=== PATIENT | female | born 1965 | race Caucasian/White ===

== ENCOUNTER 2018-01-22 06:20 | Day surgery (SDC) | payer OTHER ==
[~2018-01-22 06:20] MED LIST: BUSPAR PO; CLONAZEPAM2 MG PO; GEODON80 MG PO; PROZAC40 MG PO; RESTORIL30 M1 PO; WELLBUTRIN XL300 MG PO
== END 2018-01-22 14:50 | disposition home or self-care (01) ==
LOC: CIR.AMB 06:20
DX: C79.81 Secondary malignant neoplasm of breast (principal)
CPT/HCPCS: 36556; C1751

== ENCOUNTER → 2018-04-03 14:05 | Outpatient (CLI) | payer OTHER | END | disposition home or self-care (01) | LOC: LAB 14:05 | DX: D64.89 Other specified anemias (principal) ==

== ENCOUNTER 2018-05-17 05:58 | Day surgery (SDC) | payer OTHER ==
[~2018-05-17] VITALS: Ht 157.5 cm; Wt 72.6 kg
[~2018-05-17 05:58] MED LIST changes: +CANNABIS MEDICINAL
== END 2018-05-18 09:00 | disposition home or self-care (01) ==
LOC: CIR.AMB 05:58 → O/R 15:54 → SURH 15:57 → O/R 15:57 → SURH 15:57 → CIR.AMB 18:06 → SURH 05-18 13:56 → O/R 05-18 13:56
DX: C50.411 Malignant neoplasm of upper-outer quadrant of right female breast (principal); Z15.01 Genetic susceptibility to malignant neoplasm of breast; Z90.13 Acquired absence of bilateral breasts and nipples

== ENCOUNTER 2018-12-30 08:21 | Day surgery (SDC) | payer OTHER | END 2018-12-30 17:10 | disposition home or self-care (01) | LOC: CIR.AMB 08:21 | PROVIDERS: Plastic Surgery | PROC: 0HPT0JZ Removal of Synthetic Substitute from Right Breast, Open Approach (ICD-10-PCS; 2018-12-30) | PROC: 0HRV0JZ Replacement of Bilateral Breast with Synthetic Substitute, Open Approach (ICD-10-PCS; 2018-12-30) | PROC: 0H0V0KZ Alteration of Bilateral Breast with Nonautologous Tissue Substitute, Open Approach (ICD-10-PCS; 2018-12-30) | PROC: 0HPU0JZ Removal of Synthetic Substitute from Left Breast, Open Approach (ICD-10-PCS; principal; 2018-12-30 07:00) | DX: C50.411 Malignant neoplasm of upper-outer quadrant of right female breast (principal); Z90.13 Acquired absence of bilateral breasts and nipples | CPT/HCPCS: 19328; 19342; 19366; C1789 ==

== ENCOUNTER → 2019-03-11 | Outpatient (CLI) | payer OTHER | END | disposition home or self-care (01) | LOC: RAD 12:33 | DX: J15.7 Pneumonia due to Mycoplasma pneumoniae (principal); Z85.3 Personal history of malignant neoplasm of breast ==

== ENCOUNTER 2019-05-07 09:00 | Inpatient (IN) | payer OTHER ==
[2019-05-07] MEDS ORDERED: VOLTAREN100 GM (09:15)
== END 2019-05-16 13:19 | disposition home or self-care (01) | DRG 742 ==
LOC: ADM 09:00 → OB/GYN 05-15 05:54 → O/R 05-15 05:54 → CIR.AMB 05-15 09:00 → EDSTATUS 05-15 09:00 → SURH 05-15 09:45 → OB/GYN 05-15 14:23
PROVIDERS: ADMIT Obstetrics & Gynecology Gynecologic Oncology
PROC: 0UT74ZZ Resection of Bilateral Fallopian Tubes, Percutaneous Endoscopic Approach (ICD-10-PCS; 2019-05-15)
PROC: 0DBU4ZZ Excision of Omentum, Percutaneous Endoscopic Approach (ICD-10-PCS; 2019-05-15)
PROC: 3E1M38Z Irrigation of Peritoneal Cavity using Irrigating Substance, Percutaneous Approach (ICD-10-PCS; 2019-05-15)
PROC: 0UT94ZZ Resection of Uterus, Percutaneous Endoscopic Approach (ICD-10-PCS; principal; 2019-05-15 09:45)
DX: N80.0 Endometriosis of uterus (principal); C79.89 Secondary malignant neoplasm of other specified sites; Z15.01 Genetic susceptibility to malignant neoplasm of breast; Z15.09 Genetic susceptibility to other malignant neoplasm; Z85.3 Personal history of malignant neoplasm of breast; N83.292 Other ovarian cyst, left side; N71.1 Chronic inflammatory disease of uterus

== ENCOUNTER 2022-07-16 13:42 | Emergency (ER) | payer OTHER ==
[~2022-07-16] VITALS: Ht 157.5 cm; Wt 67.1 kg
[~2022-07-16 13:42] MED LIST changes: +VOLTAREN100 GM
== END 2022-07-16 20:15 | disposition home or self-care (01) ==
LOC: ER 13:42
DX: G25.2 Other specified forms of tremor (principal); Z85.3 Personal history of malignant neoplasm of breast; D63.0 Anemia in neoplastic disease; Z88.2 Allergy status to sulfonamides

== ENCOUNTER 2022-08-03 15:16 | Inpatient (IN) | payer OTHER ==
[~2022-08-03] VITALS: Ht 157.5 cm; Wt 63.0 kg
[2022-08-03] MEDS ORDERED: ALPRAZOLAM1 MG (17:48)
[2022-08-03] MEDS ORDERED: QUETIAPINE FUMA25 MG (17:48)
[2022-08-03] MEDS ORDERED: PROPRANOLOL HCL10 MG (17:48)
[2022-08-03] MEDS ORDERED: ESCITALOPRAM OX20 MG (17:48)
[2022-08-03] MEDS ORDERED: LYNPARZA150 MG (17:49)
== END 2022-08-06 14:43 | disposition home or self-care (01) | DRG 598 ==
LOC: MEDI 15:16
PROVIDERS: ADMIT Internal Medicine Hematology & Oncology; ATTEND Internal Medicine Hematology & Oncology
PROC: 30233N1 Transfusion of Nonautologous Red Blood Cells into Peripheral Vein, Percutaneous Approach (ICD-10-PCS; principal; 2022-08-03)
DX: C50.411 Malignant neoplasm of upper-outer quadrant of right female breast (principal); C77.9 Secondary and unspecified malignant neoplasm of lymph node, unspecified; C78.01 Secondary malignant neoplasm of right lung; C78.02 Secondary malignant neoplasm of left lung; C78.7 Secondary malignant neoplasm of liver and intrahepatic bile duct; C79.72 Secondary malignant neoplasm of left adrenal gland; C79.71 Secondary malignant neoplasm of right adrenal gland; F31.81 Bipolar II disorder; G25.9 Extrapyramidal and movement disorder, unspecified; D63.0 Anemia in neoplastic disease; M51.37 Other intervertebral disc degeneration, lumbosacral region; M62.830 Muscle spasm of back; Z17.0 Estrogen receptor positive status [ER+]; Z15.01 Genetic susceptibility to malignant neoplasm of breast; Z15.09 Genetic susceptibility to other malignant neoplasm
CPT/HCPCS: 240

== ENCOUNTER 2022-11-28 09:55 | Inpatient (IN) | payer OTHER ==
[~2022-11-28] VITALS: Ht 162.6 cm; Wt 56.7 kg
[~2022-11-28 09:55] MED LIST changes: +ALPRAZOLAM1 MG; +ESCITALOPRAM OX20 MG; +LYNPARZA150 MG; +PROPRANOLOL HCL10 MG; +QUETIAPINE FUMA25 MG
[2022-11-29] MEDS ORDERED: ALPRAZOLAM1 MG (11:06)
[2022-11-29] MEDS ORDERED: ESCITALOPRAM OX20 MG (11:06)
[2022-11-29] MEDS ORDERED: PREGABALIN75 MG (11:07)
[2022-11-29] MEDS ORDERED: LYNPARZA150 MG (11:07)
[2022-11-29] MEDS ORDERED: PROPRANOLOL HCL10 MG (11:07)
[2022-11-29] MEDS ORDERED: QUETIAPINE FUMA25 MG (11:07)
[2022-11-30] MEDS ORDERED: TOBRADEX EYE DR10 ML OP (13:14)
== END 2022-11-30 14:41 | disposition home or self-care (01) | DRG 599 ==
LOC: SEC-K 09:55 → MEDJ 09:55
PROVIDERS: ADMIT Internal Medicine Hematology & Oncology; ATTEND Internal Medicine Hematology & Oncology
PROC: 30233N1 Transfusion of Nonautologous Red Blood Cells into Peripheral Vein, Percutaneous Approach (ICD-10-PCS; principal; 2022-11-28)
DX: C50.411 Malignant neoplasm of upper-outer quadrant of right female breast (principal); D63.0 Anemia in neoplastic disease; Z15.01 Genetic susceptibility to malignant neoplasm of breast; D64.9 Anemia, unspecified
CPT/HCPCS: 240

== ENCOUNTER 2023-02-16 12:16 | Inpatient (IN) | payer OTHER ==
[~2023-02-16] VITALS: Ht 157.5 cm; Wt 63.5 kg
[~2023-02-16 12:16] MED LIST changes: +PREGABALIN75 MG; +TOBRADEX EYE DR10 ML OP
== END 2023-02-18 13:09 | disposition home or self-care (01) | DRG 598 ==
LOC: MEDJ 12:16
PROVIDERS: ADMIT Internal Medicine Hematology & Oncology; ATTEND Internal Medicine Hematology & Oncology
PROC: 30233N1 Transfusion of Nonautologous Red Blood Cells into Peripheral Vein, Percutaneous Approach (ICD-10-PCS; principal; 2023-02-17)
DX: C50.411 Malignant neoplasm of upper-outer quadrant of right female breast (principal); C77.9 Secondary and unspecified malignant neoplasm of lymph node, unspecified; C78.7 Secondary malignant neoplasm of liver and intrahepatic bile duct; C79.70 Secondary malignant neoplasm of unspecified adrenal gland; D63.0 Anemia in neoplastic disease

== ENCOUNTER 2023-08-10 15:44 | Inpatient (IN) | payer OTHER ==
[~2023-08-10] VITALS: Ht 157.5 cm; Wt 60.3 kg
[2023-08-12 08:18] LABS: HEMATOCRIT 29.6 % (36.0-45.00); HEMOGLOBIN 10.3 g/dL (12.0-15.00); MEAN CELL VOLUME 90.7 fL (80.00-100.00); MEAN CORPUSCULAR HEMOGLOBIN 31.5 pg (27.00-32.0); MEAN CORPUSCULAR HGB CONC 34.7 g/dl (32.0-36.0); RED BLOOD COUNT 3.26 M/uL (4.00-6.00)
[2023-08-12 08:26] LABS: PLATELET COUNT 119 K/uL (150-450)
[2023-08-12 08:28] LABS: RED CELL DISTRIBUTION WIDTH 21.8 % (11.5-14.5)
[2023-08-12 08:43] LABS: ALBUMIN 3.4 gm/dL (3.4-5.0); BILIRUBIN TOTAL 1.33 mg/dL (0.3-1.2); CALCIUM 8.4 mg/dL (8.5-10.1); CREATININE SERUM 0.72 mg/dL (0.55-1.02); GFR 82.62; GLOBULINA 2.8 G/DL (2.4-3.5); POTASSIUM 4.29 mEq/L (3.5-5.1); TOTAL PROTEIN 6.2 gm/dL (6.4-8.2)
[2023-08-12 08:46] LABS: D DIMER 3.4 MG/L; INR 1.03; PARTIAL THROMBOPLASTIN TIME 29.3 SECONDS (22.0-34.0); PROTHROMBIN TIME 10.8 SECONDS (9.0-11.5)
== END 2023-08-12 19:30 | disposition home or self-care (01) | DRG 598 ==
LOC: SURH 15:44
PROVIDERS: ADMIT Internal Medicine Hematology & Oncology; ATTEND Internal Medicine Hematology & Oncology
PROC: 30233N1 Transfusion of Nonautologous Red Blood Cells into Peripheral Vein, Percutaneous Approach (ICD-10-PCS; principal; 2023-08-11)
DX: C50.411 Malignant neoplasm of upper-outer quadrant of right female breast (principal); C78.01 Secondary malignant neoplasm of right lung; C78.7 Secondary malignant neoplasm of liver and intrahepatic bile duct; D64.81 Anemia due to antineoplastic chemotherapy; Z17.0 Estrogen receptor positive status [ER+]; E83.111 Hemochromatosis due to repeated red blood cell transfusions
CPT/HCPCS: 240

== ENCOUNTER 2023-09-28 12:16 | Inpatient (IN) | payer OTHER ==
[~2023-09-28] VITALS: Ht 157.5 cm; Wt 61.7 kg
[2023-09-28 13:39] LABS: URINE APPEARANCE Clear; URINE BILIRRUBIN Negative (NEGATIVE); URINE BLOOD Negative; URINE COLOR Dark Yellow; URINE GLUCOSE Negative (NEGATIVE); URINE LEUKOCYTE Negative; URINE NITRATE Negative; URINE PROTEIN 30 (NEGATIVE)
[2023-09-28 13:40] LABS: URINE BACTERIA 119.6 uL (0.0-1933); URINE EPITHELIAL CELLS 8.3 uL (0.0-38.8); URINE WBC 11.1 uL (0.0-23.2)
[2023-09-28 13:57] LABS: MEAN CELL VOLUME 94.5 fL (80.00-100.00); MEAN CORPUSCULAR HGB CONC 34.5 g/dl (32.0-36.0); PLATELET COUNT 138 K/uL (150-450); RED BLOOD COUNT 1.81 M/uL (4.00-6.00); RED CELL DISTRIBUTION WIDTH 22.7 % (11.5-14.5)
[2023-09-28 14:12] LABS: INR 1.04; PARTIAL THROMBOPLASTIN TIME 29.6 SECONDS (22.0-34.0); PROTHROMBIN TIME 10.9 SECONDS (9.0-11.5)
[2023-09-28 14:22] LABS: ALBUMIN 3.8 gm/dL (3.4-5.0); BILIRUBIN TOTAL 0.41 mg/dL (0.3-1.2); CALCIUM 8.6 mg/dL (8.5-10.1); CREATININE SERUM 0.86 mg/dL (0.55-1.02); FERRITIN 832.6 NG/ML (8-252); GFR 67.31; GLOBULINA 3.2 G/DL (2.4-3.5); POTASSIUM 4.09 mEq/L (3.5-5.1)
[2023-09-28 14:29] LABS: HEMATOCRIT 17.1 % (36.0-45.00); HEMOGLOBIN 5.9 g/dL (12.0-15.00); MEAN CORPUSCULAR HEMOGLOBIN 32.5 pg (27.00-32.0)
[2023-09-28] MEDS ORDERED: MULTIVIT INFUSN,ADULT 4,VIT K 10 ML VIAL IV SCH (16:37)
[2023-09-28] MEDS ORDERED: 0.9 % SODIUM CHLORIDE 1,000 ML IV SCH (16:40)
[2023-09-28] MEDS ORDERED: DEFEROXAMINE MESYLATE 500 MG VIAL IV SCH (16:45)
[2023-09-28] MEDS ORDERED: FAMOTIDINE/PF 20 MG/2 ML VIAL IV SCH (16:47)
[2023-09-28] MEDS ORDERED: FUROsemide 20 MG/2 ML VIAL IV SCH (17:00)
[2023-09-28] MEDS ORDERED: CLONAZEPAM 1 MG TABLET PO PRN (17:00)
[2023-09-28] MEDS ORDERED: ONDANSETRON HCL 2 MG/ML VIAL IV PRN (17:00)
[2023-09-29] MEDS ORDERED: [UNRECOGNIZED DRUG - OTHER] IJ SCH (21:00)
[2023-09-29 22:28] LABS: HEMATOCRIT 28.4 % (36.0-45.00); MEAN CELL VOLUME 86.7 fL (80.00-100.00); MEAN CORPUSCULAR HGB CONC 35.1 g/dl (32.0-36.0); RED BLOOD COUNT 3.27 M/uL (4.00-6.00)
[2023-09-29 22:29] LABS: MEAN CORPUSCULAR HEMOGLOBIN 30.5 pg (27.00-32.0); PLATELET COUNT 114 K/uL (150-450); RED CELL DISTRIBUTION WIDTH 17.2 % (11.5-14.5)
[2023-09-30 08:40] LABS: HEMATOCRIT 26.9 % (36.0-45.00); HEMOGLOBIN 9.5 g/dL (12.0-15.00); MEAN CELL VOLUME 86.6 fL (80.00-100.00); MEAN CORPUSCULAR HEMOGLOBIN 30.7 pg (27.00-32.0); MEAN CORPUSCULAR HGB CONC 35.5 g/dl (32.0-36.0); RED CELL DISTRIBUTION WIDTH 17.3 % (11.5-14.5)
[2023-09-30 08:45] LABS: PLATELET COUNT 106 K/uL (150-450)
[2023-09-30 15:05] LABS: FERRITIN 1115.3 NG/ML (8-252)
[2023-09-30] MEDS ORDERED: LIDOCAINE HCL 100 MG/10ML VIAL PERCUT STA (16:16)
[2023-09-30] MEDS ORDERED: LORazepam 2 MG/ML VIAL IV PUSH STA (16:17)
[2023-09-30] MEDS ORDERED: KETOROLAC TROMETHAMINE 30 MG VIAL IV STA (16:17)
== END 2023-09-30 18:06 | disposition home or self-care (01) | DRG 812 ==
LOC: SEC-K 12:16 → SURH 15:15
PROVIDERS: ADMIT Internal Medicine Hematology & Oncology; ATTEND Internal Medicine Hematology & Oncology
PROC: 30233N1 Transfusion of Nonautologous Red Blood Cells into Peripheral Vein, Percutaneous Approach (ICD-10-PCS; principal; 2023-09-28)
PROC: 079T3ZX Drainage of Bone Marrow, Percutaneous Approach, Diagnostic (ICD-10-PCS; 2023-09-30)
DX: D64.9 Anemia, unspecified (principal); C78.7 Secondary malignant neoplasm of liver and intrahepatic bile duct; C50.411 Malignant neoplasm of upper-outer quadrant of right female breast
CPT/HCPCS: 240

== ENCOUNTER 2024-08-18 12:53 | Inpatient (IN) | payer OTHER ==
[~2024-08-18] VITALS: Ht 154.9 cm; Wt 58.5 kg
[~2024-08-18 12:53] MED LIST changes: +CARAFATE1 GM PO; +SIMETHICONE125 M1 PO
[2024-08-18 13:28] LABS: HEMATOCRIT 35.6 % (36.0-45.00); HEMOGLOBIN 12.4 g/dL (12.0-15.00); MEAN CELL VOLUME 96.3 fL (80.00-100.00); MEAN CORPUSCULAR HEMOGLOBIN 33.6 pg (27.00-32.0); MEAN CORPUSCULAR HGB CONC 34.9 g/dl (32.0-36.0); RED CELL DISTRIBUTION WIDTH 13.8 % (11.5-14.5)
[2024-08-18 13:29] LABS: PLATELET COUNT 128 K/uL (150-450)
[2024-08-18] MEDS ORDERED: MULTIVIT INFUSN,ADULT 4,VIT K 10 ML VIAL IV SCH (13:39)
[2024-08-18 13:43] LABS: INR 1.05; PARTIAL THROMBOPLASTIN TIME 30.6 SECONDS (22.0-34.0); PROTHROMBIN TIME 11.4 SECONDS (9.0-11.5)
[2024-08-18] MEDS ORDERED: ACETAMINOPHEN 325 MG TABLET PO PRN (13:45)
[2024-08-18] MEDS ORDERED: RINGERS SOLUTION,LACTATED 1,000 ML IV SCH (13:45)
[2024-08-18 14:21] LABS: ALBUMIN 4.3 gm/dL (3.4-5.0); BILIRUBIN TOTAL 1.44 mg/dL (0.3-1.2); CALCIUM 9.8 mg/dL (8.5-10.1); CREATININE SERUM 1.35 mg/dL (0.55-1.02); GFR 39.87; GLOBULINA 3.6 G/DL (2.4-3.5); POTASSIUM 4.19 mEq/L (3.5-5.1); TOTAL PROTEIN 7.9 gm/dL (6.4-8.2)
[2024-08-18 14:50] VITALS: BP 110/77
[2024-08-18] MEDS ORDERED: ONDANSETRON HCL 2 MG/ML VIAL IV SCH (16:00)
[2024-08-18] MEDS ORDERED: FAMOTIDINE/PF 20 MG/2 ML VIAL IV PUSH SCH (17:00)
[2024-08-18 17:35] VITALS: BP 131/85
[2024-08-18] MEDS ORDERED: PROMETHAZINE HCL 25 MG/SUPP.RECT SUPP.RECT RECTAL STA (19:02)
[2024-08-18] MEDS ORDERED: AA 4.25%/CAL/LYTES/DEXT 5% 1,000 ML PERIFERAL SCH (19:06)
[2024-08-18] MEDS ORDERED: PROMETHAZINE HCL 25 MG/SUPP.RECT SUPP.RECT RECTAL PRN (19:15)
[2024-08-18] MEDS ORDERED: HALOPERIDOL LACTATE 5 MG/ML AMPUL IV STA (20:30)
[2024-08-18 20:53] LABS: CALCIUM 9.2 mg/dL (8.5-10.1); CHOL HDL RATIO 3.9 (0-5.0); CREATININE SERUM 1.32 mg/dL (0.55-1.02); GFR 40.91; POTASSIUM 3.58 mEq/L (3.5-5.1)
[2024-08-19 02:24] VITALS: BP 145/83; O2SAT 99
[2024-08-19 06:54] LABS: CALCIUM 8.5 mg/dL (8.5-10.1); CREATININE SERUM 1.11 mg/dL (0.55-1.02); GFR 49.97; MAGNESIUM 1.6 mg/dL (1.8-2.4); PHOSPHOROUS 4.5 mg/dL (2.5-4.9); POTASSIUM 3.23 mEq/L (3.5-5.1)
[2024-08-19 08:00] VITALS: BP 115/71
[2024-08-19] MEDS ORDERED: PANTOPRAZOLE SODIUM 40 MG TABLET.DR PO SCH (09:00)
[2024-08-19] MEDS ORDERED: MAGNESIUM SULFATE/D5W 100 ML IV NR (11:00)
[2024-08-19] MEDS ORDERED: POTASSIUM CHLORIDE 20MEQ/100ML H2O PB IV NR (13:00)
[2024-08-19 17:53] VITALS: BP 125/76
[2024-08-20 01:00] VITALS: BP 104/54
[2024-08-20 06:34] LABS: CALCIUM 8.5 mg/dL (8.5-10.1); CREATININE SERUM 0.79 mg/dL (0.55-1.02); GFR 73.99; MAGNESIUM 1.8 mg/dL (1.8-2.4); POTASSIUM 3.42 mEq/L (3.5-5.1)
[2024-08-20 08:25] VITALS: BP 120/74
[2024-08-20 17:41] VITALS: BP 108/67; O2SAT 100
[2024-08-20] MEDS ORDERED: POTASSIUM CHLORIDE 20MEQ/100ML H2O PB IV NR (18:00)
[2024-08-20] MEDS ORDERED: PANTOPRAZOLE SO40 MG PO (20:23)
== END 2024-08-20 20:33 | disposition home or self-care (01) | DRG 599 ==
LOC: MEDJ 12:53
PROVIDERS: ADMIT Internal Medicine Hematology & Oncology; ATTEND Internal Medicine Hematology & Oncology
PROC: 8E0ZXY6 Isolation (ICD-10-PCS; principal; 2024-08-18)
PROC: BW28ZZZ Computerized Tomography (CT Scan) of Head (ICD-10-PCS; 2024-08-18)
DX: C50.411 Malignant neoplasm of upper-outer quadrant of right female breast (principal); E87.6 Hypokalemia; K29.70 Gastritis, unspecified, without bleeding; R41.82 Altered mental status, unspecified
CPT/HCPCS: 240

== ENCOUNTER 2024-12-20 12:31 | Inpatient (IN) | payer OTHER ==
[~2024-12-20] VITALS: Ht 162.6 cm; Wt 53.1 kg
[~2024-12-20 12:31] MED LIST changes: +PANTOPRAZOLE SO40 MG PO
[2024-12-20] MEDS ORDERED: ELIQUIS5 MG PO (12:47)
[2024-12-20] MEDS ORDERED: SEROQUEL25 MG PO (12:48)
[2024-12-20] MEDS ORDERED: LEXAPRO5 MG PO (12:48)
[2024-12-20] MEDS ORDERED: DAFLONEX-XL 11300 MG PO (12:49)
[2024-12-20] MEDS ORDERED: XANAX1 MG PO (12:49)
[2024-12-20] MEDS ORDERED: RESTORIL15 MG PO (12:50)
[2024-12-20 14:16] LABS: BASO % 0.1 % (0.1-1.2); EOS # 0.01 (0.04-0.54); EOS % 0.1 % (0.7-7.0); HEMATOCRIT 28.8 % (34.1-44.9); HEMOGLOBIN 9.6 g/dL (11.2-15.7); LYMPH # 1.16 (1.18-3.74); LYMPH % 10.6 % (19.3-53.1); MEAN CORPUSCULAR HEMOGLOBIN 31.1 pg (25.6-32.2); MONO % 7.3 % (4.7-12.5); NEUT # 8.91 (1.56-6.13); NEUT % 81.3 % (34.0-71.1); PLATELET COUNT 233 K/uL (163-369); RED BLOOD COUNT 3.09 M/uL (3.93-5.22)
[2024-12-20 14:39] LABS: INR 1.17; PARTIAL THROMBOPLASTIN TIME 24.1 SECONDS (22.0-34.0); PROTHROMBIN TIME 12.6 SECONDS (9.0-11.5)
[2024-12-20 14:44] LABS: ALBUMIN 3.8 gm/dL (3.4-5.0); BILIRUBIN TOTAL 1.37 mg/dL (0.3-1.2); CALCIUM 8.8 mg/dL (8.5-10.1); CREATININE SERUM 1.14 mg/dL (0.55-1.02); GFR 48.45; POTASSIUM 3.55 mEq/L (3.5-5.1); TOTAL PROTEIN 6.8 gm/dL (6.4-8.2)
[2024-12-20 14:46] LABS: INFLUENZA A AG NEGATIVE (NEGATIVE); INFLUENZA B AG NEGATIVE (NEGATIVE)
[2024-12-20 14:48] LABS: COVID-19 AG NEGATIVE (NEGATIVE)
[2024-12-20] MEDS ORDERED: 0.9 % SODIUM CHLORIDE 1,000 ML IV ONE (16:00)
[2024-12-20 16:18] LABS: URINE APPEARANCE Clear; URINE BILIRRUBIN Small (NEGATIVE); URINE BLOOD Negative; URINE COLOR Dark Yellow; URINE GLUCOSE Negative (NEGATIVE); URINE LEUKOCYTE Trace; URINE NITRATE Negative; URINE PROTEIN 30 (NEGATIVE)
[2024-12-20 16:22] LABS: URINE BACTERIA 116.2 uL (0.0-1933); URINE EPITHELIAL CELLS 6.8 uL (0.0-38.8); URINE RBC 8.1 uL (0.0-20.8); URINE WBC 4.5 uL (0.0-23.2)
[2024-12-20 16:42] LABS: URINE CAST 0.29 uL (0.0-1.40); URINE KETONE 80 (NEGATIVE)
[2024-12-20] MEDS ORDERED: 0.9 % SODIUM CHLORIDE 1,000 ML IV SCH (18:00)
[2024-12-20] MEDS ORDERED: CEFTRIAXONE SODIUM 1,000 MG VIAL IV STA (18:03)
[2024-12-20] MEDS ORDERED: DEXAMETHASONE SODIUM PHOSPHATE 4 MG/ML VIAL IV STA (18:03)
[2024-12-20] MEDS ORDERED: AMINO ACIDS 4.25 %/DEXTROSE 5% 1,000 ML PERIFERAL SCH (18:07)
[2024-12-20] MEDS ORDERED: ONDANSETRON HCL 2 MG/ML VIAL IV PRN (18:15)
[2024-12-20] MEDS ORDERED: ACETAMINOPHEN 325 MG TABLET PO PRN (18:15)
[2024-12-20] MEDS ORDERED: FAMOTIDINE/PF 20 MG in 0.9 % SODIUM CHLORIDE 8 ML IV PUSH SCH (21:00)
[2024-12-20] MEDS ORDERED: CEFTRIAXONE SODIUM 1,000 MG VIAL IV SCH (21:00)
[2024-12-20] MEDS ORDERED: DEXAMETHASONE SODIUM PHOSPHATE 4 MG/ML VIAL IV SCH (21:00)
[2024-12-21] MEDS ORDERED: ONDANSETRON HCL 2 MG/ML VIAL ONE ×2 (02:55→17:20)
[2024-12-21 06:02] LABS: BASO % 0.2 % (0.1-1.2); EOS # 0.14 (0.04-0.54); EOS % 1.6 % (0.7-7.0); LYMPH # 1.14 (1.18-3.74); LYMPH % 13.2 % (19.3-53.1); MEAN CORPUSCULAR HEMOGLOBIN 31.4 pg (25.6-32.2); MONO # 0.64 (0.24-0.82); MONO % 7.4 % (4.7-12.5); NEUT # 6.65 (1.56-6.13); NEUT % 76.9 % (34.0-71.1); PLATELET COUNT 189 K/uL (163-369); RED CELL DISTRIBUTION WIDTH 13.8 % (11.6-14.4)
[2024-12-21 06:11] LABS: HEMOGLOBIN 8.8 g/dL (11.2-15.7)
[2024-12-21 06:12] LABS: HEMATOCRIT 26.8 % (34.1-44.9)
[2024-12-21 06:27] LABS: ALBUMIN 3.3 gm/dL (3.4-5.0); BILIRUBIN TOTAL 0.92 mg/dL (0.3-1.2); CREATININE SERUM 0.64 mg/dL (0.55-1.02); GFR 94.34; GLOBULINA 2.6 G/DL (2.4-3.5); MAGNESIUM 1.9 mg/dL (1.8-2.4); PHOSPHOROUS 3.2 mg/dL (2.5-4.9); POTASSIUM 3.31 mEq/L (3.5-5.1); TOTAL PROTEIN 5.9 gm/dL (6.4-8.2)
[2024-12-21 07:00] VITALS: BP 113/70; O2SAT 99
[2024-12-21 11:00] VITALS: BP 114/78; O2SAT 98
[2024-12-21] MEDS ORDERED: POTASSIUM CHLORIDE 20MEQ/100ML H2O PB IV ONE ×2 (11:00→12:38)
[2024-12-21 15:17] VITALS: BP 124/71; O2SAT 100
[2024-12-21] MEDS ORDERED: AMINO ACIDS 4.25 %/DEXTROSE 5% 1,000 ML PERIFERAL SCH (17:00)
[2024-12-21] MEDS ORDERED: DEXAMETHASONE SODIUM PHOSPHATE 4 MG/ML VIAL ONE (17:20)
[2024-12-21] MEDS ORDERED: FAMOTIDINE/PF 20 MG/2 ML VIAL ONE (20:50)
[2024-12-22] VITALS: BP 125/75; O2SAT 97
[2024-12-22 09:06] VITALS: BP 123/84; O2SAT 97
[2024-12-22 16:32] VITALS: BP 123/80; O2SAT 99
[2024-12-22] MEDS ORDERED: DEXAMETHASONE SODIUM PHOSPHATE 4 MG/ML VIAL IV SCH (17:00)
[2024-12-22 20:05] LABS: HEMATOCRIT 35.2 % (34.1-44.9); LYMPH # 0.37 (1.18-3.74); LYMPH % 3.9 % (19.3-53.1); MONO # 0.31 (0.24-0.82); MONO % 3.3 % (4.7-12.5); NEUT # 8.78 (1.56-6.13); NEUT % 92.2 % (34.0-71.1); PLATELET COUNT 195 K/uL (163-369); RED BLOOD COUNT 3.97 M/uL (3.93-5.22); RED CELL DISTRIBUTION WIDTH 16.2 % (11.6-14.4)
[2024-12-22 20:17] LABS: HEMOGLOBIN 11.9 g/dL (11.2-15.7)
[2024-12-23 01:27] VITALS: BP 128/76; O2SAT 100
[2024-12-23 08:59] VITALS: BP 107/73; O2SAT 99
[2024-12-23 09:43] LABS: CALCIUM 8.3 mg/dL (8.5-10.1); CREATININE SERUM 0.71 mg/dL (0.55-1.02); GFR 83.69; POTASSIUM 3.84 mEq/L (3.5-5.1)
[2024-12-23 16:00] VITALS: BP 119/77; O2SAT 100
[2024-12-23] MEDS ORDERED: FAMOtidine 20 MG TABLET PO SCH (17:00)
[2024-12-23] MEDS ORDERED: DEXAMETHASONE 4 MG TABLET PO SCH (17:00)
[2024-12-23] MEDS ORDERED: ELIQUIS5 MG PO (18:43)
[2024-12-23] MEDS ORDERED: FAMOTIDINE20 MG PO (18:43)
[2024-12-23] MEDS ORDERED: DEXAMETHASONE4 MG PO (18:44)
[2024-12-23] MEDS ORDERED: CIPRO500 MG PO (18:45)
== END 2024-12-23 19:43 | disposition home or self-care (01) | DRG 597 ==
LOC: ER 12:35 → SURH 19:35 → SEC-K 19:35 → SURH 12-21 16:30
PROVIDERS: General Practice; ADMIT Internal Medicine Hematology & Oncology; ATTEND Internal Medicine Hematology & Oncology
PROC: BW28ZZZ Computerized Tomography (CT Scan) of Head (ICD-10-PCS; principal; 2024-12-20)
PROC: 30233N1 Transfusion of Nonautologous Red Blood Cells into Peripheral Vein, Percutaneous Approach (ICD-10-PCS; 2024-12-21)
DX: C50.911 Malignant neoplasm of unspecified site of right female breast (principal); A41.9 Sepsis, unspecified organism; G93.41 Metabolic encephalopathy; N39.0 Urinary tract infection, site not specified; C79.31 Secondary malignant neoplasm of brain; E86.0 Dehydration; R41.82 Altered mental status, unspecified; E87.6 Hypokalemia; D63.0 Anemia in neoplastic disease